=== PATIENT | female | born 1970 | race Caucasian/White ===

== ENCOUNTER 2016-06-11 10:26 | Emergency (ER) | payer MEDICAID ==
[~2016-06-11 10:26] MED LIST: ADVIL200 M3 PO; ANAPROX DS550 M1 PO; CIPRO500 M2 PO; CYMBALTA30 MG PO; FLAGYL500 M1 PO; IBUPROFEN200 MG PO; LISINOPRIL40 MG PO; NORCO 5/325 TAB1 TAB PO; PHENERGAN25 M1 PO; TRAMADOL HCL50 M2 PO; TRAZODONE100 MG PO; ULTRAM50 MG PO; XANAX1 MG PO
[2016-06-11] MEDS ORDERED: NEURONTIN600 M1 PO (10:36)
[2016-06-11] MEDS ORDERED: TRAMADOL HCL50 M2 PO (11:18)
[2016-10-05] MEDS ORDERED: NAPROSYN500 M1 PO (15:21)
== END 2016-06-11 11:25 ==
LOC: EDMED 10:26
DX: G89.29 Other chronic pain (principal); M25.572 Pain in left ankle and joints of left foot; M79.672 Pain in left foot; M25.562 Pain in left knee
CPT/HCPCS: J1885